=== PATIENT | female | born 1965 | race Caucasian/White ===

== ENCOUNTER → 2019-03-12 | Outpatient (CLI) | payer BC ==
[~2019-03-12] VITALS: Ht 182.9 cm; Wt 80.7 kg
[~2019-03-12] MED LIST: CATHETER FLUSH 10 ML SYR IV PRN; CYAN100053 IJ; LEVO175T2 PO
[2019-03-12 08:00] VITALS: BP 123/95
--- NOTE | 2019-03-17 14:09 | Cardiology Stress Test Report ---
Stress Test Report Type of NM Stress Test: Test Type: NUCLEAR TREADMILL Date of Procedure/Referring: Date of Procedure: Mar 12, 2019 PCP Kamila Ho,Mariaa Admitting Physician Suman Ho DO Indications: Chest pain Baseline Blood Pressure: Blood Pressure Systolic: 123 Blood Pressure Diastolic: 95 Summary & Conclusion: Summary: The patient was brought to the stress lab after informed consent was taken. Stress test was performed according to the [facility] protocol. Please refer to Dr. Ho's ETT report. 10.50 mCi of Myoview were given for rest imaging and 32.9 mCi of Myoview given for stress imaging. Transient ischemic dilatation score 0.98, EF 43 percent. Normal wall motion. Fixed anterior defect with logan-infarct ischemia. Moderate to large size. Conclusion: Pharmacological stress test was negative for ischemia. Mildly reduce LV function with normal wall motion. 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 Coronary angiography is recommended. Darcy ADAMES MD Mar 17, 2019 14:09
== END ==
LOC: CARD 06:35
PROVIDERS: ATTEND Nurse Practitioner Family
DX: R07.9 Chest pain, unspecified (principal)
CPT/HCPCS: 78452; 93017

== ENCOUNTER → 2019-04-12 | Outpatient (CLI) | payer BC ==
[~2019-04-12] MED LIST changes: -CATHETER FLUSH 10 ML SYR IV PRN
== END ==
LOC: CARD 08:09
PROVIDERS: ATTEND Internal Medicine Cardiovascular Disease
DX: I08.2 Rheumatic disorders of both aortic and tricuspid valves (principal); I25.10 Atherosclerotic heart disease of native coronary artery without angina pectoris; E03.9 Hypothyroidism, unspecified
CPT/HCPCS: 93306

== ENCOUNTER → 2019-08-07 | Outpatient (CLI) | payer BC ==
--- NOTE | 2019-08-07 13:43 | Diagnostic Imaging Report ---
INDICATION: Postmenopausal screening for osteoporosis. COMPARISON: None. FINDINGS: AP Spine L1-L4: [BMD (g/cm2): 1.052] [T-Score: -1.2] [Z-Score: -1.2] [BMD Previous: NA] [BMD % Change: NA] LT Hip Neck: [BMD (g/cm2): 1.126] [T-Score: 0.6] [Z-Score: 1.2] LT Hip Total: [BMD (g/cm2):1.109] [T-Score:0.8] [Z-Score: 1.0] [BMD Previous: NA] [BMD % Change: NA] RT Hip Neck: [BMD (g/cm2):1.139] [T-Score:0.7] [Z-Score:1.3] RT Hip Total: [BMD (g/cm2):1.050] [T-score:0.3] [Z-Score:0.5] [BMD Previous:NA] [BMD % Change:NA] *Indicates significant change from prior examination based on 95% confidence level. World Health Organization criteria for BMD interpretation classify patients as Normal (T-score at or above -1.0), Osteopenic (T-score between -1.0 and -2.5) or Osteoporotic (T-score at or below -2.5). LIMITATIONS AND MODIFICATION: None. FRACTURE RISK (FRAX SCORE): The ten year probability of (%): Major Osteoporotic Fracture: [NA] Hip Fracture: [NA] IMPRESSION: 1. Osteopenia (Low bone mass). 2. Baseline examination. 3. See below National Osteoporosis Foundation guidelines on when to potentially initiate pharmacologic therapy. Based on the National Osteoporosis Foundation Guidelines, pharmacologic treatment should be initiated in any of the following, unless clinical conditions suggest otherwise: * Any patient with prior fragility fracture of the hip or vertebrae. A spine fracture indicates 5X risk for subsequent spine fracture and 2X risk for subsequent hip fracture. * Osteoporosis (T-score <-2.5). * Postmenopausal women and men age 50 and older with low bone mass/osteopenia (T-score between -1.0 and -2.5) by DXA and 10-year major osteoporotic fracture greater than 20% or a 10-year probability of hip fracture greater than 3%. These fracture risks are supplied above in the FRAX score, if applicable. * Clinician judgement and/or patient preferences may indicate treatment for people with 10-year fracture probabilities above or below these levels. Dictated by: Dictated on workstation # [id number]
== END ==
LOC: RAD 12:55
PROVIDERS: ATTEND Internal Medicine Endocrinology, Diabetes & Metabolism
DX: Z13.820 Encounter for screening for osteoporosis (principal); M85.80 Other specified disorders of bone density and structure, unspecified site; Z78.0 Asymptomatic menopausal state
CPT/HCPCS: 77080

== ENCOUNTER → 2019-08-27 | Outpatient (CLI) | payer BC ==
--- NOTE | 2019-08-30 13:08 | Diagnostic Imaging Report ---
INDICATION: Routine screening. COMPARISON: Comparison is made with prior mammograms from 11/01/2017 and 10/18/2016. 2-D and 3-D bilateral screening mammography was performed. The current study was also evaluated with a Computer Aided Detection (CAD) system. 3-D tomosynthesis was also performed and reviewed. FINDINGS: Scattered fibroglandular densities are identified bilaterally. The parenchymal pattern is stable. No dominant mass or malignant-appearing microcalcifications are seen. Occasional benign-appearing calcifications are noted. Axillae are unremarkable. IMPRESSION: No mammographic features suspicious for malignancy are identified. ACR BI-RADS Category 2: Benign findings. Result letter will be mailed to the patient. Note: At least 10% of breast cancer is not imaged by mammography. Dictated by: Dictated on workstation # [id number]
== END ==
LOC: RAD 14:20
PROVIDERS: ATTEND Nurse Practitioner Family
DX: Z12.31 Encounter for screening mammogram for malignant neoplasm of breast (principal)
CPT/HCPCS: 77067

== ENCOUNTER → 2020-01-31 | Outpatient (CLI) | payer BC ==
--- NOTE | 2020-01-31 15:13 | Diagnostic Imaging Report ---
PROCEDURE: US Thyroid. TECHNIQUE: Multiple real-time grayscale images were obtained of the thyroid in various projections. INDICATION: Thyroid nodule. FINDINGS: The right thyroid lobe measured 3.3 x 0.8 x 1.2 cm, the left 3.7 x 1.1 x 0.9 cm. The isthmus measured 2 mm in thickness. No solid or cystic thyroidal mass. Echotexture appeared somewhat heterogeneous but no abnormal color Doppler blood flow. IMPRESSION: Mildly somewhat heterogeneous thyroid is nonfocal, no evidence of mass. Dictated by: Dictated on workstation # [id number]
== END ==
LOC: RAD 10:45
PROVIDERS: ATTEND Internal Medicine Endocrinology, Diabetes & Metabolism
DX: E04.1 Nontoxic single thyroid nodule (principal)
CPT/HCPCS: 76536

== ENCOUNTER → 2020-05-29 | Outpatient (CLI) | payer BC ==
[~2020-05-29] MED LIST changes: +GADOBUTROL 10 MMOL/10 ML (GADAVIST) VIAL IV ONE
[2020-05-29 08:13] LABS: ALANINE AMINOTRANSFERASE 30 U/L (0-55); ALBUMIN 4.5 GM/DL (3.2-4.5); ALKALINE PHOSPHATASE 67 U/L (40-136); BILIRUBIN,TOTAL 1.1 MG/DL (0.1-1.0); BUN/CREATININE RATIO 21; CALCIUM 9.4 MG/DL (8.5-10.1); CARBON DIOXIDE 22 MMOL/L (21-32); CHLORIDE 104 MMOL/L (98-107); GFR ESTIMATED > 60; GLUCOSE 249 MG/DL (70-105); POTASSIUM 4.3 MMOL/L (3.6-5.0); SODIUM 138 MMOL/L (135-145); TOTAL PROTEIN 7.2 GM/DL (6.4-8.2)
--- NOTE | 2020-05-29 11:38 | Diagnostic Imaging Report ---
Clinical indications: Patient states she is having vision loss and memory problems. Exam: MRI of the brain performed without and with 6 cc of Gadavist IV contrast. Sequences include axial DWI, ADC map, coronal gradient echo, axial T2, axial FLAIR, axial T1, axial T1 post IV contrast, coronal T1 fat-sat post IV contrast, and sagittal T1 post IV contrast. Comparison: None. Findings: There is no evidence of acute cerebral infarct, intracranial hemorrhage, or gross mass effect. There is no abnormal IV contrast enhancement. The brain parenchymal volume appears appropriate for patient's age. There are several focal areas of high T2 signal white matter changes involving both cerebral hemispheres, likely representing mild chronic small vessel ischemic disease. There is normal rubio-white matter distinction. There is no significant midline shift or herniation. The [place] vascular structures show no gross abnormality as visualized. The pituitary gland, sella, and suprasellar regions are unremarkable as visualized. There is no evidence of hydrocephalus. The basal cisterns are unremarkable. The skull, extracranial soft tissue, and orbits are unremarkable. There is very minimal mucosal thickening involving left maxillary sinus and ethmoid sinus. Temporal bones show no significant abnormality. IMPRESSION: 1: There is no acute intracranial process. There is no abnormal IV contrast enhancement. Orbits and globes show no significant abnormality. 2: Mild age-related brain parenchymal changes with mild chronic small vessel ischemic disease. 3: Minimal paranasal sinus disease. Dictated by: Dictated on workstation # [id number]
== END ==
LOC: RAD 08:45
PROVIDERS: ATTEND Internal Medicine Endocrinology, Diabetes & Metabolism
DX: I67.82 Cerebral ischemia (principal); E11.9 Type 2 diabetes mellitus without complications; R41.3 Other amnesia; H53.9 Unspecified visual disturbance
CPT/HCPCS: 36415; 70553; 80053

== ENCOUNTER → 2020-10-07 | Outpatient (CLI) | payer BC ==
[~2020-10-07] MED LIST changes: -GADOBUTROL 10 MMOL/10 ML (GADAVIST) VIAL IV ONE
--- NOTE | 2020-10-07 11:43 | Diagnostic Imaging Report ---
INDICATION: Routine screening. COMPARISON: 08/27/2019 and 11/01/2017. TECHNIQUE: 2D and 3D bilateral screening mammography was performed with CAD. FINDINGS: Both breasts are heterogeneously dense, limiting the sensitivity of mammography. The parenchymal pattern is stable. No mass or malignant appearing microcalcifications are seen. The axillae are unremarkable. IMPRESSION: No mammographic features suspicious for malignancy are identified. ACR BI-RADS Category 1: Negative. Result letter will be mailed to the patient. Note: At least 10% of breast cancer is not imaged by mammography. Dictated by: Dictated on workstation # [id number]
== END ==
LOC: RAD 10:01
PROVIDERS: ATTEND Surgery
DX: Z12.31 Encounter for screening mammogram for malignant neoplasm of breast (principal)
CPT/HCPCS: 77063; 77067

== ENCOUNTER → 2020-10-07 | Outpatient (CLI) | payer BC ==
--- NOTE | 2020-10-07 11:59 | Diagnostic Imaging Report ---
CLINICAL INDICATION: Patient with cerebrovascular disease. Patient has diabetes mellitus and history of headaches. COMPARISON: None. EXAM: Real-time carotid Doppler duplex imaging is performed bilaterally. Peak systolic velocity, ICA/CCA peak systolic ratio, spectral analysis, and vascular morphology are studied. FINDINGS: ARTERY VELOCITY Right Left CCA 0.72 m/s 0.75 m/s ICA 0.81 m/s 0.81 m/s ECA 0.52 m/s 0.70 m/s ICA/CCA 1.13 1.07 VERT.ART Antegrade Antegrade IMPRESSION: There is no grayscale or Doppler evidence of significant vascular stenosis. Dictated by: Dictated on workstation # [id number]
== END ==
LOC: RAD 10:03
PROVIDERS: ATTEND Internal Medicine Endocrinology, Diabetes & Metabolism
DX: I67.9 Cerebrovascular disease, unspecified (principal); E11.9 Type 2 diabetes mellitus without complications
CPT/HCPCS: 93880

== ENCOUNTER 2021-08-06 08:31 | Outpatient (CLI) | payer BC ==
[~2021-08-06] VITALS: Ht 182.9 cm; Wt 78.0 kg
[2021-08-06] MEDS ORDERED: ASPI-999 PO (15:15)
[2021-08-06] MEDS ORDERED: INSU100I40 SQ (15:15)
[2021-08-06] MEDS ORDERED: SEMA1PEN3 SQ (15:15)
[2021-08-06] MEDS ORDERED: METF500S5 PO (15:15)
[2021-08-06] MEDS ORDERED: INSU100V37 SQ (15:15)
[2021-08-06] MEDS ORDERED: ROSU10TA22 PO (15:15)
[2021-08-06] MEDS ORDERED: LEVO100T PO (15:32)
[2021-08-06] MEDS ORDERED: CNC1KV IM (15:32)
== END 2021-08-07 09:11 | disposition home or self-care (01) ==
LOC: PREOP 08:31
PROVIDERS: ATTEND Surgery
DX: Z01.818 Encounter for other preprocedural examination (principal)

== ENCOUNTER 2021-08-12 10:14 | Day surgery (SDC) | payer BC ==
[2021-08-12] VITALS (13 sets, daily range): BP systolic 105–132; BP diastolic 68–84
[~2021-08-12] VITALS: Ht 182.9 cm; Wt 78.0 kg
[~2021-08-12 10:14] MED LIST changes: +ASPI-999 PO; +CNC1KV IM; +INSU100I40 SQ; +INSU100V37 SQ; +LEVO100T PO; +METF500S5 PO; +ROSU10TA22 PO; +SEMA1PEN3 SQ
[2021-08-12] MEDS ORDERED: NS IV 500 ML 500 ML ONE (10:23)
[2021-08-12] MEDS ORDERED: LIDOCAINE JELLY 2% 6 ML SYRINGE MM PRN ×2 (10:30→10:45)
[2021-08-12] MEDS ORDERED: NS IV 1000 ML 1,000 ML IV STA (10:30)
[2021-08-12] MEDS ORDERED: fentaNYL INJ 100 MCG/2 ML AMP IVP ONE (10:45)
[2021-08-12] MEDS ORDERED: MIDAZOLAM 5 MG/5 ML (VERSED) VIAL IV ONE (10:45)
--- NOTE | 2021-08-12 11:08 | Conscious Sedation/ASA ---
Conscious Sedation Pre-Proced Time 10:30 ASA Score 2 For ASA 3 and 4: Consider anesthesia and medical clearance. Also, for patients with a history of failed moderate sedation consider anesthesia. Airway Lungs Heart ASA score ASA 1: a normal healthy patient ASA 2: a patient with a mild systemic disease (mid diabetes, controlled hypertension, obesity ASA 3: a patient with a severe systemic disease that limits activity (angina, COPD, prior Myocardial infarction) ASA 4: a patient with an incapacitating disease that is a constant threat to life (CHF, renal failure) ASA 5: a moribund patient not expected to survive 24 hrs. (ruptured aneurysm) ASA 6: a declared brain- patient whose organs are being harvested. For emergent operations, add the letter E after the classification Mallampati Classification Grade 2 Sedation Plan Analgesia, Amnesia, Plan communicated to team members, Discussed options with patient/fam, Discussed risks with patient/fam The patient is an appropriate candidate to undergo the planned procedure, sedation, and anesthesia. The patient immediately re-assessed prior to indication. BERTIN XIONG MD Aug 12, 2021 11:08
--- NOTE | 2021-08-12 11:08 | Progress Note-Pre Operative ---
Pre-Operative Progress Note H&P Reviewed The H&P was reviewed, patient examined and no changes noted. Date Seen by Provider: Aug 12, 2021 Time Seen by Provider: 10:30 Date H&P Reviewed: Aug 12, 2021 Time H&P Reviewed: 10:30 Pre-Operative Diagnosis: screening BERTIN Young MD Aug 12, 2021 11:08
--- NOTE | 2021-08-12 11:09 | Discharge Inst-Surgical ---
D/C Lap Instructions-INGA Follow Up Activity as tolerated High Fiber Diet 25g or more per day Avoid Alcohol, Caffeine, Spicy [place] and Acid foods. Drink 64 fluid oz or more of fluids per day. Symptoms to Report: Fever over 101 degree F, Nausea/Vomiting If any problems/questions: Contact your physician or go to Emergency Room BERTIN XIONG MD Aug 12, 2021 11:09
[2021-08-12] MEDS ORDERED: ONDANSETRON 4 MG/2 ML (SDV) Z0FRAN IVP PRN (11:15)
[2021-08-12] MEDS ORDERED: ONDANSETRON 4 MG (ZOFRAN) ORAL DISSOLVE TAB PO PRN (11:15)
--- NOTE | 2021-08-12 12:57 | Progress Note-Post Operative ---
Post-Operative Progess Note Surgeon (s)/Occupational Health And Safety Manager (s) Surgeon BERTIN XIONG MD Occupational Health And Safety Manager: none Pre-Operative Diagnosis screening colo Post-Operative Diagnosis chronic stage 2 ext and int hemorrhoids. Procedure & Operative Findings Date of Procedure 08/12/21 Procedure Performed/Findings colonoscopy Anesthesia Type cs Estimated Blood Loss Estimated blood loss (mL): minimal Specimens/Packing Specimens Removed none BERTIN XIONG MD Aug 12, 2021 12:57
--- NOTE | 2021-08-12 17:55 | OPERATIVE REPORT ---
DATE OF SERVICE: 08/12/2021 ATTENDING PRIMARY CARE PHYSICIAN: Suman Ho DO PREOPERATIVE DIAGNOSIS: Screening colonoscopy. POSTOPERATIVE DIAGNOSIS: Mild chronic stage II external and internal hemorrhoids. PROCEDURE: Colonoscopy. SURGEON: Bertin Xiong MD. ANESTHESIA: Conscious sedation. ESTIMATED BLOOD LOSS: Minimal. FINDINGS: Same as postoperative diagnosis. DISPOSITION: The patient tolerated the procedure well. INDICATIONS: The patient is a 55-year-old female in need of a screening colonoscopy. She states that she is otherwise doing well, does not report any major issues with diarrhea nor constipation as well as no red blood per rectum nor any dark tarry stools. She also does not report any family history of colon cancer. DESCRIPTION OF PROCEDURE: The patient was brought to the endoscopy suite, laid in the left lateral decubitus position. After adequate IV pain and sedative medications and conscious sedation anesthesia, a digital rectal examination was performed. Mild stage II chronic external and internal hemorrhoids were identified, which were not actively edematous nor inflamed and no bleeding. Normal sphincter tone was felt and there were no palpable masses. The endoscope was then intubated to the anus and rectum gently insufflated. The endoscope was then advanced to the valves of Sam of the rectum with no polyps or any neoplasms identified. We then proceeded through the sigmoid colon where no diverticulosis identified. The endoscope was then advanced to the remainder of the descending, transverse and ascending colon to the cecum, which appeared normal. No polyps or any neoplasms identified throughout the colon or rectum. The endoscope was then slowly withdrawn while taking a second look and suctioning of residual air with no additional findings. The patient tolerated the procedure well. We will recommend a high-fiber diet with a fiber supplement, which should equal or exceed 25 grams daily as well as significant amounts of water to promote soft stools on a daily basis. If she is asymptomatic, she does not need another colonoscopy for another 10 years. Job ID: [id number] DocumentID: [id number] Dictated Date: 08/12/2021 12:17:25 Customs Broker Date: 08/12/2021 17:55:29 Dictated By: BERTIN XIONG MD
== END 2021-08-12 14:05 | disposition home or self-care (01) ==
LOC: ENDO 10:14
PROVIDERS: ATTEND Surgery
DX: Z12.11 Encounter for screening for malignant neoplasm of colon (principal); K64.1 Second degree hemorrhoids; E11.9 Type 2 diabetes mellitus without complications; E03.9 Hypothyroidism, unspecified; Z79.890 Hormone replacement therapy; Z79.84 Long term (current) use of oral hypoglycemic drugs; Z79.899 Other long term (current) drug therapy

== ENCOUNTER → 2021-10-21 | Outpatient (CLI) | payer BC ==
--- NOTE | 2021-10-21 12:41 | Diagnostic Imaging Report ---
INDICATION: Routine screening. COMPARISON: 10/07/2020 and 08/27/2019. TECHNIQUE: 2D and 3D bilateral screening mammography was performed with CAD. FINDINGS: Both breasts are heterogeneously dense, limiting the sensitivity of mammography. The parenchymal pattern is stable. No mass or malignant-appearing microcalcifications are seen. The axillae are unremarkable. IMPRESSION: No mammographic features suspicious for malignancy are identified. ACR BI-RADS Category 1: Negative. Result letter will be mailed to the patient. Note: At least 10% of breast cancer is not imaged by mammography. Dictated by: Dictated on workstation # [id number]
== END ==
LOC: RAD 10:00
PROVIDERS: ATTEND Surgery
DX: Z12.31 Encounter for screening mammogram for malignant neoplasm of breast (principal)
CPT/HCPCS: 77063; 77067

== ENCOUNTER → 2021-11-05 | Outpatient (CLI) | payer BC ==
[~2021-11-05] MED LIST changes: +CATHETER FLUSH 10 ML SYR IV PRN; +HOLD METFORMIN - RECEIVED CONTRAST 20 ML VIAL IV SCH; +IOHEXOL 350 MG/ML 100 ML (OMNIPAQUE 350) VIAL IV ONE; +NS 100 ML (IVPB) BAG IV ONE
[2021-11-05 08:26] LABS: CREATININE SERUM 0.73 MG/DL (0.60-1.30)
--- NOTE | 2021-11-05 10:09 | Diagnostic Imaging Report ---
PROCEDURE; CT pelvis with and without contrast. TECHNIQUE: After oral contrast administration, imaging was obtained from the iliac crest to the lesser trochanters. Repeat imaging was performed after intravenous contrast administration. Auto Exposure Controls were utilized during the CT exam to meet ALARA standards for radiation dose reduction. INDICATION: Lymphadenopathy. Asymptomatic. COMPARISON: None. FINDINGS: Bilateral prominent inguinal lymph nodes are seen measuring 1.0 cm in short axis on the right and 0.8 cm in short axis on the left. These demonstrate normal reniform shape with preserved fatty hilum and are favored to be reactive. No pathologic lymphadenopathy is identified. No lymphadenopathy is seen within the pelvis itself. The included bowel loops are nondistended. No free fluid or free air is seen in the pelvis. The urinary bladder is unremarkable. The visualized aorta and bilateral iliac systems have a normal appearance. No acute osseous abnormality is seen in the pelvis. IMPRESSION: 1. Likely reactive prominent lymph nodes in the bilateral inguinal regions. No suspicious features are seen to suggest malignant lymphadenopathy. Recommend continued attention as indicated. 2. No lymphadenopathy was seen within the pelvis. No bowel obstruction. No free fluid or free air. Dictated by: Dictated on workstation # [id number]
== END ==
LOC: RAD 08:45
PROVIDERS: ATTEND Surgery
DX: R59.0 Localized enlarged lymph nodes (principal)
CPT/HCPCS: 36415; 72194; 82565; 84520

== ENCOUNTER → 2022-11-11 | Outpatient (CLI) | payer BC ==
[~2022-11-11] MED LIST changes: -CATHETER FLUSH 10 ML SYR IV PRN; -HOLD METFORMIN - RECEIVED CONTRAST 20 ML VIAL IV SCH; -IOHEXOL 350 MG/ML 100 ML (OMNIPAQUE 350) VIAL IV ONE; -METF500S5 PO; +METF500S7 PO; +NF-CRES10T PO; -NS 100 ML (IVPB) BAG IV ONE; -ROSU10TA22 PO
--- NOTE | 2022-11-11 12:34 | Diagnostic Imaging Report ---
INDICATION: Routine screening. COMPARISON: 10/21/2021 and 10/07/2020. TECHNIQUE: 2D and 3D bilateral screening mammography was performed with CAD. FINDINGS: Scattered fibroglandular densities are identified bilaterally. The parenchymal pattern is stable. No mass or malignant-appearing microcalcifications are seen. The axillae are unremarkable. IMPRESSION: No mammographic features suspicious for malignancy are identified. ACR BI-RADS Category 1: Negative. Result letter will be mailed to the patient. Note: At least 10% of breast cancer is not imaged by mammography. Dictated by: Dictated on workstation # [id number]
== END ==
LOC: RAD 09:29
PROVIDERS: ATTEND Surgery
DX: Z12.31 Encounter for screening mammogram for malignant neoplasm of breast (principal)
CPT/HCPCS: 77063; 77067

== ENCOUNTER 2023-02-14 20:47 | Emergency (ER) | payer BC ==
[~2023-02-14] VITALS: Ht 183 cm; Wt 77.1 kg
--- NOTE | 2023-02-14 21:09 | ED GU-Female ---
General Chief Complaint: - Reproductive Stated Complaint: RIGHT FLANK PAIN Nursing Triage Note: PT AMB TO RM 7 W REPORTS OF BURNING W URINATION, URINARY FREQUENCY, URGENCY, AND FLANK PAIN SX YESTERDAY. PT A&OX4, REPORTS SHE STARTED TAKING AZO AND CIPRO TODAY, VOMIT X1 THIS PM. Source: patient Exam Limitations: no limitations History of Present Illness Date Seen by Provider: Feb 14, 2023 Time Seen by Provider: 20:58 Initial Comments 57 YO F here for R flakn pain. Started to have some dysuria and increased urinary hesitancy yesterday. Today she has had flank pain on the right side for most of the day that has been worsening. No fevers but she has had some chills. She had a single episode of nonbloody nonbilious emesis. No changes in her bowels. No vaginal symptoms. She is postmenopausal. She did take a single dose of Cipro which she had at home for previous UTIs. All other systems reviewed and negative except documented per HPI. Voice recognition software was used to help create this chart Allergies and Home Medications Allergies Coded Allergies: meperidine (Verified Allergy, Unknown, 05/29/20) Patient Home Medication List Home Medication List Reviewed: Yes Aspirin (Aspirin) 81 Mg Tab.chew, 81 MG PO DAILY, (Reported) Entered as Reported by: DANIEL VILLA on 08/06/21 151 Cyanocobalamin (Cyanocobalamin Injection) 1,000 Mcg/Ml Inj, 1,000 MCG IM, (Reported) Entered as Reported by: DANIEL VILLA on 08/06/21 1532 Hydrocodone/Acetaminophen (Hydrocodone-Acetamin 5-325 mg) 5 Mg-325 Mg Tablet, 1 TAB PO Q4H PRN for PAIN-MODERATE (5-7) Prescribed by: NOEL CASTILLO MD on 02/15/23 0152 Insulin Aspart (Niacinamide) (Fiasp 100 Unit/ml Flextouch) 100 Unit/1 Ml Insuln.pen, 1 UNIT SQ AC, (Reported) Entered as Reported by: DANIEL VILLA on 08/06/21 1515 Insulin Degludec (Tresiba) 100 Unit/1 Ml Vial, 7 UNIT SQ DAILY, (Reported) Entered as Reported by: DANIEL VILLA on 08/06/21 1515 Levothyroxine Sodium (Synthroid) 175 Mcg Tablet, 100 MG PO DAILY, (Reported) Entered as Reported by: NASH ARAUZ on 10/18/13 0040 Levothyroxine Sodium (Synthroid) 100 Mcg Tablet, 100 MCG PO DAILY, (Reported) Entered as Reported by: DANIEL VILLA on 08/06/21 153 Metformin HCl (Metformin HCl) 500 Mg/5 Ml Solution, 750 MG PO BID, (Reported) Entered as Reported by: DANIEL VILLA on 08/06/21 1515 Ondansetron (Ondansetron Odt) 8 Mg Tab.rapdis, 8 MG SL Q6H PRN for NAUSEA/VOMITING Prescribed by: NOEL CASTILLO MD on 02/15/23 0152 Rosuvastatin Calcium (Crestor) 10 Mg Tablet, 10 MG PO DAILY, (Reported) Entered as Reported by: DANIEL VILLA on 08/06/21 151 Semaglutide (Ozempic) 1 Mg/0.75 Ml Pen.injctr, 1 MG SQ WEEKLY, (Reported) Entered as Reported by: DANIEL VILLA on 08/06/21 151 Review of Systems Review of Systems Constitutional: see HPI Past Dzkianr-Mxhdwr-Ddybie Hx Patient Social History Tobacco Use?: No Use of E-Cig and/or Vaping dev: No Substance use?: No Alcohol Use?: No Immunizations Up To Date First/Initial COVID19 Vaccinat: 04/18 Second COVID19 Vaccination Riky: 04/18 Third COVID19 Vaccination Date: 04/18 COVID19 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 Seasonal Allergies Seasonal Allergies: No Past Medical History Respiratory: No Cardiac: No Neurological: Yes Headaches /Migraines Reproductive Disorders: No Sexually Transmitted Disease: No HIV/AIDS: No Genitourinary: No Gastrointestinal: No (CEALIAC) Musculoskeletal: No Endocrine: No Diabetes, Insulin dep, Hypothyroidsim HEENT: Yes (RIGHT EAR TINNITIS) Tinnitis Loss of Vision: Denies Hearing Impairment: Denies Cancer: No Psychosocial: No Integumentary: No Blood Disorders: No Adverse Reaction/Blood Tranf: No Family Medical History Abdominal aortic aneurysm 09 BROTHER Alcoholism 09 BROTHER Cancer 09 SISTER (THYROID CANCER) 09 SISTER (THYROID CANCER) Family history: Alzheimer's disease 03 FATHER Family history: Arthritis 03 MOTHER Family history: Diabetes mellitus 09 SISTER Family history: Hypertension 03 FATHER 03 MOTHER Family history: Thyroid disorder 09 SISTER 09 SISTER 09 SISTER Headache 09 BROTHER (MIGRAINES) Infertile 09 SISTER Stroke 03 MOTHER No Family History of: Compton's disease Aphasia Cancer of colon Cataract Chest pain Congenital heart disease Congestive heart failure Cystic fibrosis Dementia Dysphagia Family history: Allergy Family history: Asthma Family history: Breast disease Family history: Cardiovascular disease Family history: Coronary thrombosis Family history: Gastrointestinal disease Family history: Glaucoma Family history: Osteoporosis Hearing loss Heart disease Hereditary disease History of - anemia History of - disorder History of - respiratory disease History of drug abuse Human immunodeficiency virus (HIV) seropositivity Hypercholesterolemia Kidney disease Malignant neoplasm of lung Myocardial infarction Parkinson's disease Prostate cancer Psychotic disorder Seizure disorder Tuberculosis Visual impairment Physical Exam Vital Signs Vital Signs - First Documented 02/14/23 21:00 Temp 37.1 Pulse 92 Resp 18 B/P (MAP) 134/97 (109) Pulse Ox 98 O2 Delivery Room Air Capillary Refill : Less Than 3 Seconds Height, Weight, BMI Height: 6'0.00" Weight: 178lbs. 0.0oz. [id number]; 23.00 BMI Method: General Appearance: WD/WN, no apparent distress HEENT: normal ENT inspection, pharynx normal Neck: full range of motion, supple, normal inspection Cardiovascular: regular rate, rhythm, no murmur Respiratory: chest non-tender, lungs clear, normal breath sounds, no respiratory distress, no accessory muscle use Gastrointestinal: normal bowel sounds, soft, no organomegaly, no pulsatile mass, tenderness (Tenderness palpation in suprapubic region. Right flank tenderness.) Back: no vertebral tenderness, CVA tenderness (R) Extremities: normal range of motion, non-tender, normal inspection, normal capillary refill Neurologic/Psychiatric: alert, oriented x 3 Skin: normal color, warm/dry Progress/Results/Core Measures Suspected Sepsis SIRS Temperature: Pulse: 92 Respiratory Rate: 18 Laboratory Tests 02/14/23 21:04: White Blood Count 10.3 Blood Pressure 134 /97 Mean: 109 Laboratory Tests 02/14/23 21:04: Creatinine 0.81, Platelet Count 198, Total Bilirubin 2.2H Results/Orders Lab Results Laboratory Tests Test 02/14/23 21:04 02/14/23 21:06 Range/Units White Blood Count 10.3 4.3-11.0 10^3/uL Red Blood Count 4.30 3.80-5.11 10^6/uL Hemoglobin 13.5 11.5-16.0 g/dL Hematocrit 40 35-52 % Mean Corpuscular Volume 93 80-99 fL Mean Corpuscular Hemoglobin 31 25-34 pg Mean Corpuscular Hemoglobin Concent 34 32-36 g/dL Red Cell Distribution Width 12.5 10.0-14.5 % Platelet Count 198 130-400 10^3/uL Mean Platelet Volume 10.0 9.0-12.2 fL Immature Granulocyte % (Auto) 0 % Neutrophils (%) (Auto) 62 42-75 % Lymphocytes (%) (Auto) 24 12-44 % Monocytes (%) (Auto) 10 0-12 % Eosinophils (%) (Auto) 2 0-10 % Basophils (%) (Auto) 1 0-10 % Neutrophils # (Auto) 6.4 1.8-7.8 10^3/uL Lymphocytes # (Auto) 2.5 1.0-4.0 10^3/uL Monocytes # (Auto) 1.1 H 0.0-1.0 10^3/uL Eosinophils # (Auto) 0.3 0.0-0.3 10^3/uL Basophils # (Auto) 0.1 0.0-0.1 10^3/uL Immature Granulocyte # (Auto) 0.0 0.0-0.1 10^3/uL Sodium Level 139 135-145 MMOL/L Potassium Level 3.9 3.6-5.0 MMOL/L Chloride Level 106 98-107 MMOL/L Carbon Dioxide Level 22 21-32 MMOL/L Anion Gap 11 5-14 MMOL/L Blood Urea Nitrogen 15 7-18 MG/DL Creatinine 0.81 0.60-1.30 MG/DL Estimat Glomerular Filtration Rate 86 BUN/Creatinine Ratio 19 Glucose Level 128 H 70-105 MG/DL Calcium Level 10.0 8.5-10.1 MG/DL Corrected Calcium 9.6 8.5-10.1 MG/DL Total Bilirubin 2.2 H 0.1-1.0 MG/DL Aspartate Amino Transf (AST/SGOT) 14 5-34 U/L Alanine Aminotransferase (ALT/SGPT) 17 0-55 U/L Alkaline Phosphatase 62 40-136 U/L Total Protein 7.2 6.4-8.2 GM/DL Albumin 4.5 3.2-4.5 GM/DL Lipase 27 8-78 U/L Urine Color YELLOW Urine Clarity CLEAR Urine pH 6.5 5-9 Urine Specific [place] 1.010 L 1.016-1.022 Urine Protein 2+ H NEGATIVE Urine Glucose (UA) NEGATIVE NEGATIVE Urine Ketones 1+ H NEGATIVE Urine Nitrite POSITIVE H NEGATIVE Urine Bilirubin NEGATIVE NEGATIVE Urine Urobilinogen 1.0 < = 1.0 MG/DL Urine Leukocyte Esterase 2+ H NEGATIVE Urine RBC (Auto) 3+ H NEGATIVE Urine RBC 5-10 H /HPF Urine WBC 10-25 H /HPF Urine Crystals PRESENT H /LPF Urine Amorphous Sediment FEW STELLA URATES H /LPF Urine Bacteria FEW H /HPF Urine Casts NONE /LPF Urine Mucus NEGATIVE /LPF Urine Culture Indicated YES Micro Results Microbiology 02/14/23 Urine Culture - Final, Complete NO GROWTH My Orders Orders - ANNANOEL DO Lipase (02/14/23 21:07) Cbc With Automated Diff (02/14/23 21:07) Comprehensive Metabolic Panel (02/14/23 21:07) Ct Abd/Pelvis Wo(Kidney Stone) (02/14/23 21:07) Ua Culture If Indicated (02/14/23 21:07) Fentanyl Inj (Sublimaze Injection) (02/14/23 21:15) Urine Culture (02/14/23 21:06) Ns Iv 1000 Ml (Sodium Chloride 0.9%) (02/14/23 22:00) Ceftriaxone Iv/Im (Rocephin Iv/Im) (02/14/23 22:00) Morphine Injection (Morphine Injection (02/14/23 22:17) Ondansetron Injection (Zofran Injectio (02/14/23 22:33) Diatrizoate Meglum/Sodium 37% (Gastrogra (02/14/23 23:15) Ct Abdomen/Pelvis W (02/15/23 00:30) Iohexol Injection (Omnipaque 350 Mg/Ml 1 (02/15/23 01:00) Received Contrast (Hold Metformin- Contr (02/15/23 01:00) Sodium Chloride Flush (Catheter Flush Sy (02/15/23 01:00) Ns (Ivpb) (Sodium Chloride 0.9% Ivpb Bag (02/15/23 01:00) Morphine Injection (Morphine Injection (02/15/23 01:36) Rx-Ondansetron Po (Rx-Zofran Po) (02/15/23 02:00) Rx-Hydrocodone/Apap 5-325 Mg (Rx-Vicodin (02/15/23 02:00) Medications Given in ED Vital Signs/I&O 02/15/23 00:00 Intake Total 1050 ml Balance 1050 ml Capillary Refill : Less Than 3 Seconds Blood Pressure Mean: 109 Departure Communication (Admissions) Patient is hemodynamically stable though she has significant pain in her right flank and right suprapubic, mid abdomen. Initial concern is for pyelonephritis, cystitis, nephrolithiasis, possible small or large bowel pathology or ovarian pathology. Initial CT scan without contrast screening for ureterolithiasis shows no kidney stone however there is some inflammation around the right kidney and there is an area that is suspicious for possible tumor. Radiologist also reads possible internal hernia in the left upper abdomen with possible partial bowel obstruction in the area as well. Low back to reevaluate the patient and she again has no pain or symptoms whatsoever in her left upper abdomen. She is still in significant pain in her right lower to mid abdomen and right flank. I went ahead and obtained a CT scan with IV and oral contrast given the previous findings. This comes back completely negative for any acute pathology. I believe she likely has pyelonephritis. I did refer her to general surgery for possible internal hernia and further evaluation however at this point she is completely asymptomatic and subsequent CT scan did not show evidence of this. She has ciprofloxacin at home, has only taken 1 dose thus far. She is discharged with pain medicine nausea medicine and otherwise stable condition. She was given IV fluids here prior to discharge as well. Impression Primary Impression: Pyelonephritis Disposition: HOME, SELF-CARE Condition: Stable Departure-Patient Inst. Referrals: JEVON STAPLES DO (PCP) Primary Care Physician SABRINA STAPLES DNP (Family) Primary Care Physician Patient Instructions: Kidney Infection (DC) Add. Discharge Instructions: Continue the ciprofloxacin that you have at home. Take the pain medicine as prescribed as needed. This may make you drowsy so do not drive or make important decisions while taking it. Take the nausea medicine as needed by dissolving it under your tongue. Increase your fluids and rest. Return to the emergency department for any severe concerns. Follow-up with your primary doctor for any nonemergent needs. All discharge instructions reviewed with patient and/or family. Voiced understanding. Scripts Ondansetron (Ondansetron Odt) 8 Mg Tab.rapdis 8 MG SL Q6H PRN for NAUSEA/VOMITING for 5 Days, #20 TAB Prov: NOEL CASTILLO DO 02/15/23 Hydrocodone/Acetaminophen (Hydrocodone-Acetamin 5-325 mg) 5 Mg-325 Mg Tablet 1 TAB PO Q4H PRN for PAIN-MODERATE (5-7) for 3 Days, #12 TAB Prov: NOEL CASTILLO DO 02/15/23 NOEL CASTILLO DO Feb 14, 2023 21:09
[2023-02-14 21:14] LABS: BASOPHILS # (AUTO) 0.1 10^3/uL (0.0-0.1); BASOPHILS % (AUTO) 1 % (0-10); EOSINOPHILS # (AUTO) 0.3 10^3/uL (0.0-0.3); EOSINOPHILS % (AUTO) 2 % (0-10); HEMATOCRIT 40 % (35-52); HEMOGLOBIN 13.5 g/dL (11.5-16.0); LYMPHOCYTES # (AUTO) 2.5 10^3/uL (1.0-4.0); LYMPHOCYTES % (AUTO) 24 % (12-44); MEAN CORPUSCULAR HEMOGLOBIN 31 pg (25-34); MEAN CORPUSCULAR HGB CONC 34 g/dL (32-36); MEAN CORPUSCULAR VOLUME 93 fL (80-99); MONOCYTES # (AUTO) 1.1 10^3/uL (0.0-1.0); MONOCYTES % (AUTO) 10 % (0-12); NEUTROPHILS # (AUTO) 6.4 10^3/uL (1.8-7.8); NEUTROPHILS % (AUTO) 62 % (42-75); PLATELET COUNT 198 10^3/uL (130-400); WHITE BLOOD COUNT 10.3 10^3/uL (4.3-11.0)
[2023-02-14] MEDS ORDERED: fentaNYL INJ 100 MCG/2 ML AMP IVP ONE (21:15)
[2023-02-14 21:17] LABS: CLARITY,URINE CLEAR; COLOR,URINE YELLOW; GLUCOSE, URINE (UA) NEGATIVE (NEGATIVE); KETONES,URINE 1+ (NEGATIVE); LEUKOCYTE ESTERASE ,URINE 2+ (NEGATIVE); NITRITE,URINE POSITIVE (NEGATIVE); PH,URINE 6.5 (5-9); PROTEIN,URINE 2+ (NEGATIVE)
[2023-02-14 21:27] LABS: ALBUMIN 4.5 GM/DL (3.2-4.5); BILIRUBIN,TOTAL 2.2 MG/DL (0.1-1.0); CREATININE SERUM 0.81 MG/DL (0.60-1.30); POTASSIUM 3.9 MMOL/L (3.6-5.0); TOTAL PROTEIN 7.2 GM/DL (6.4-8.2)
[2023-02-14 21:27] LABS: AMORPHOUS SEDIMENT,UR FEW AMOR URATES /LPF; BACTERIA,URINE FEW /HPF
[2023-02-14 21:31] LABS: BILIRUBIN,URINE NEGATIVE (NEGATIVE)
[2023-02-14] MEDS ORDERED: cefTRIAXone IV/IM 1,000 MG in NS (IVPB) 50 ML IV ONE (22:00)
[2023-02-14] MEDS ORDERED: NS IV 1000 ML 1,000 ML IV SCH (22:00)
[2023-02-14] MEDS ORDERED: morphine INJ 10 MG/ML 1ML (SYR OR VIAL) IVP STA (22:17)
[2023-02-14] MEDS ORDERED: ONDANSETRON 4 MG/2 ML (SDV) Z0FRAN ONE (22:33)
--- NOTE | 2023-02-14 22:55 | Diagnostic Imaging Report ---
PROCEDURE: CT urinary tract, rule out kidney stone. TECHNIQUE: Multiple contiguous axial images were obtained through the abdomen and pelvis without the use of intravenous contrast. Auto Exposure Controls were utilized during the CT exam to meet ALARA standards for radiation dose reduction. INDICATION: 57-year-old female, left-sided abdominal pain today. Vomiting. CORRELATION STUDY: None. FINDINGS: LOWER THORAX: Elevated left diaphragm. Lung bases are clear. LIVER: Unremarkable. GALLBLADDER: Present and unremarkable. No bile duct dilatation. SPLEEN: Unremarkable. PANCREAS: Unremarkable. ADRENAL GLANDS: Unremarkable. KIDNEYS: Mild prominent appearance about the right renal pelvis with slight haziness. No overt hydronephrosis. Left kidney and collecting system unremarkable. ABDOMINAL AORTA: Unremarkable, nonaneurysmal. GASTROINTESTINAL TRACT: Esophageal hernia is present. There is some folding of the proximal stomach at the level of the diaphragm. No obstruction. There is moderate stool within the colon. There is asymmetric gas distention and suggestion of slight rotation of the colon left upper quadrant extending into the area of the elevated diaphragm. A few loops of small bowel appears well. There is suggestion of slight rotation of the gastrointestinal tract and mesentery. No free air. No pneumatosis. URINARY BLADDER: Relatively decompressed. REPRODUCTIVE: Uterus is retroverted towards the right, otherwise unremarkable. OSSEOUS STRUCTURES: No acute abnormality. OTHER: None. IMPRESSION: 1. Abnormal orientation along with distention of the colon left upper quadrant. Slightly rotated appearance is suggested. This does raise concern for internal hernia or perhaps volvulus while considered less likely not excluded. Surgical consultation would be recommended depending upon clinical findings. 2. Questionable ill-defined fullness of the right hilum. Incompletely characterized on this noncontrast study. However, correlation with short-term follow-up contrast-enhanced imaging is recommended as possibility of underlying urothelial malignancy would be difficult to exclude at this time. Telephone call has been made to Dr. Tripp at the time of this dictation, 10:30 PM. Dictated by: Dictated on workstation # [id number]
[2023-02-14] MEDS ORDERED: DIATRIZOATE MEGLUM/SODIUM 37% 120 ML (GASTROGRAFIN) PO ONE (23:15)
[2023-02-15] MEDS ORDERED: NS 100 ML (IVPB) BAG IV ONE (01:00)
[2023-02-15] MEDS ORDERED: HOLD METFORMIN - RECEIVED CONTRAST 20 ML VIAL IV SCH (01:00)
[2023-02-15] MEDS ORDERED: CATHETER FLUSH 10 ML SYR IV PRN (01:00)
[2023-02-15] MEDS ORDERED: IOHEXOL 350 MG/ML 100 ML (OMNIPAQUE 350) VIAL IV ONE (01:00)
[2023-02-15] MEDS ORDERED: morphine INJ 10 MG/ML 1ML (SYR OR VIAL) IVP STA (01:36)
[2023-02-15] MEDS ORDERED: ONDA8TAB13 SL (01:52)
[2023-02-15] MEDS ORDERED: ACHD5005 PO (01:52)
[2023-02-15] MEDS ORDERED: RX-ONDANSETRON 4 MG ODT (ZOFRAN) PPK #4 PO ONE (02:00)
[2023-02-15 02:03] VITALS: BP 107/70
--- NOTE | 2023-02-15 06:30 | Diagnostic Imaging Report ---
EXAMINATION: CT abdomen and pelvis with intravenous contrast. TECHNIQUE: Multiple contiguous axial images were obtained through the abdomen and pelvis after the uneventful administration of intravenous contrast. All CT scans use one or more of the following dose optimizing techniques: automated exposure control, MA and/or KvP adjustment based on patient size and exam type or iterative reconstruction. HISTORY: R kidney with possible mass, possible internl hernia LUQ COMPARISON: 02/14/2023 FINDINGS: Lung bases: Bibasilar dependent atelectasis. Solid organs: The liver is normal without focal lesion. The gallbladder is normal. There is no biliary ductal dilation. Pancreas is normal. Spleen is normal. Adrenal glands are normal. The kidneys are normal without hydronephrosis. Bowel: The stomach and small bowel are normal without obstruction. Mild dilation of the transverse colon which is not pathologically distended. There is a focal transition point within left upper quadrant. The appendix is normal. Peritoneum: There is no intraperitoneal free fluid or free air. No suspicious lymphadenopathy. Vasculature: Normal without aneurysm. Musculoskeletal: No suspicious osseous lesion or compression fracture. Pelvis: The uterus is surgically absent. No adnexal mass. The urinary bladder is normal. IMPRESSION: 1. No acute abnormality in the abdomen or pelvis. 2. There is mild dilatation of the transverse colon within the left upper quadrant with area of transition seen along the left upper quadrant. The distal colon is decompressed. This does not appear to be causing obstruction at this time but could be secondary to internal hernia. Dictated by: Dictated on workstation # [id number]
== END 2023-02-15 02:03 | disposition home or self-care (01) ==
LOC: EDUNIT# 20:47 → ER 20:50
DX: N12 Tubulo-interstitial nephritis, not specified as acute or chronic (principal); E11.9 Type 2 diabetes mellitus without complications; Z79.4 Long term (current) use of insulin; Z88.6 Allergy status to analgesic agent; Z87.440 Personal history of urinary (tract) infections
CPT/HCPCS: 36415; 74176; 74177; 80053; 81000; 83690; 85025; 87088

== ENCOUNTER 2023-06-09 05:29 | Outpatient (CLI) | payer BC ==
[~2023-06-09] VITALS: Ht 185.9 cm; Wt 75.0 kg
[~2023-06-09 05:29] MED LIST changes: +ACHD5005 PO; +ONDA8TAB13 SL
== END 2023-06-09 13:45 | disposition home or self-care (01) ==
LOC: PREOP 05:29
PROVIDERS: ATTEND Surgery
DX: Z01.818 Encounter for other preprocedural examination (principal)

== ENCOUNTER 2023-06-16 09:35 | Day surgery (SDC) | payer BC ==
[2023-06-16] VITALS (10 sets, daily range): BP systolic 103–114; BP diastolic 74–80
[~2023-06-16] VITALS: Ht 185.9 cm; Wt 75.0 kg
[2023-06-16] MEDS ORDERED: ceFAZolin INJECTION 2,000 MG in NS (IVPB) 50 ML 50 ML IV ONE (09:45)
[2023-06-16] MEDS ORDERED: dexAMETHasone INJ 10 MG/ML 1 ML VIAL ONE (10:11)
[2023-06-16] MEDS ORDERED: ONDANSETRON INJECTION 4 MG/2 ML (SDV) ONE (10:11)
[2023-06-16] MEDS ORDERED: LIDOCAINE PF 2% 5 ML VIAL ONE (10:11)
[2023-06-16] MEDS ORDERED: proPOfol INJECTION 200 MG/20 ML VIAL IV ONE (10:11)
[2023-06-16] MEDS ORDERED: fentaNYL INJECTION 100 MCG/2 ML VIAL ONE (10:11)
[2023-06-16] MEDS ORDERED: MIDAZOLAM INJ 2 MG/2 ML VIAL ONE (10:12)
[2023-06-16] MEDS: LACTATED RINGERS 1,000 ML 1,000 ML IV PRN ×2 (10:14→11:47)
[2023-06-16] MEDS ORDERED: LIDOCAINE 2% w/EPI 1:100,000 20 ML VIAL ONE (10:36)
[2023-06-16] MEDS: LIDOCAINE 2% w/EPI 1:100,000 20 ML VIAL INJ ONE (11:36)
[2023-06-16] MEDS ORDERED: SEVOFLURANE (ULTANE) 15 ML INHAL SOLN ONE (11:57)
--- NOTE | 2023-06-16 12:01 | Progress Note-Pre Operative ---
Pre-Operative Progress Note Date of Available H&P: Jun 16, 2023 Date H&P Reviewed: Jun 16, 2023 Time H&P Reviewed: 10:30 History & Physical: No changes noted Pre-Operative Diagnosis: persistent right inguinal lymphadenopathy BERTIN XIONG MD Jun 16, 2023 12:01
[2023-06-16] MEDS ORDERED: HYDR-3817 PO (12:02)
--- NOTE | 2023-06-16 12:03 | Discharge Inst-Surgical ---
D/C Lap Instructions-INGA New, Converted, or Re-Newed RX: RX on Chart Follow Up Appt in 2 weeks Activity as tolerated No driving for 24 hours No driving while on pain medications Regular Diet Symptoms to Report: Fever over 101 degree F, Nausea/Vomiting Infection Signs and Symptoms to report: Increased redness, Foul odor of wound, Increased drainage Bathing instructions: May shower Operative Area Clean/Dry; Keep incision clean/dry If any problems/questions: Contact your physician or go to Emergency Room BERTIN XIONG MD Jun 16, 2023 12:03
--- NOTE | 2023-06-16 12:05 | Progress Note-Post Operative ---
Post-Operative Progess Note Surgeon (s)/Clinical Social Work Aide (s) Surgeon BERTIN XIONG MD Clinical Social Work Aide: none Pre-Operative Diagnosis persistent right inguinal lymphadenopathy Post-Operative Diagnosis same Procedure & Operative Findings Date of Procedure 06/16/23 Procedure Performed/Findings excsision right inguinal lymph node x2 Anesthesia Type general LMA and local Estimated Blood Loss Estimated blood loss (mL): minimal Specimens/Packing Specimens Removed right inguinal lymph node x2 BERTIN XIONG MD Jun 16, 2023 12:05
--- NOTE | 2023-06-16 12:06 | Anesthesia-General Post-Op ---
General Patient Condition Mental Status/LOC: Same as Preop Cardiovascular: Satisfactory Nausea/Vomiting: Absent Respiratory: Satisfactory Pain: Controlled Complications: Absent Post Op Complications Complications None Follow Up Care/Instructions Patient Instructions None needed. Anesthesia/Patient Condition Patient Condition Patient is doing well, no complaints, stable vital signs, no apparent adverse anesthesia problems. No complications reported per nursing. APRIL GEORGE CRNA Jun 16, 2023 12:06
[2023-06-16] MEDS ORDERED: morphine INJ 10 MG/ML 1ML (SYR OR VIAL) IVP ONE (12:15)
[2023-06-16] MEDS ORDERED: ONDANSETRON 4 MG ORAL DISSOLVE TABLET PO PRN (12:15)
[2023-06-16] MEDS ORDERED: ONDANSETRON INJECTION 4 MG/2 ML (SDV) IVP PRN ×2 (12:15)
--- NOTE | 2023-06-16 18:38 | OPERATIVE REPORT ---
DATE OF SERVICE: 06/16/2023 ATTENDING PRIMARY CARE PHYSICIAN: Suman Ho DO PREOPERATIVE DIAGNOSIS: Persistent right inguinal lymphadenopathy. POSTOPERATIVE DIAGNOSES: Persistent right inguinal lymphadenopathy. PROCEDURE: Excisional biopsy, right inguinal lymph node x2. SURGEON: Bertin Xiong MD ANESTHESIA: General laryngeal mask airway with local. ESTIMATED BLOOD LOSS: Minimal. FINDINGS: Two slightly enlarged right inguinal lymph nodes. DISPOSITION: The patient tolerated the procedure well. INDICATIONS: The patient is a 57-year-old female who has noticed bilateral inguinal enlarged lymph nodes on an intermittent basis for the past year. She states that the right has been more significant than the left. She states that currently she only has a slightly enlarged, palpable lymph nodes in the right inguinal region. She does not report any recent travel or change in drinking water or food sources. She also does not report any infections involving the lower extremity or feet. She also does not report any systemic symptoms of fevers, night sweats as well as inadvertent weight loss. She also does not know of any direct family history of any cancers. DESCRIPTION OF PROCEDURE: The patient was brought to the operating room, laid supine on the table. After adequate IV pain and sedative medications and general laryngeal mask airway intubation, the groin and abdomen were prepped and draped in standard surgical fashion. A 2% lidocaine with epinephrine was then used to anesthetize the overlying skin in the left inguinal region. Oblique incision was then made using a #15 blade. The subcutaneous tissue was then dissected using electrocautery. There were 2 palpable lymph nodes identified, which were slightly larger than normal. These were isolated and completely dissected out after the fascia was opened using electrocautery. The lymph nodes were then isolated and completely excised using electrocautery with visualization of good hemostasis. The lymph nodes were then sent to pathology. Good hemostasis was observed and the fascia was then closed using interrupted 3-0 Vicryl sutures. The skin was then closed using 4-0 Monocryl running subcuticular sutures. Wounds were then cleaned and covered with Dermabond. The patient tolerated the procedure well. We will have her follow up in the office in approximately 2 weeks and discuss the pathology results. She is instructed to do all her normal activities of daily living; however, no severe lifting or exertion for the next week or two. Job ID: [id number] DocumentID: [id number] Dictated Date: 06/16/2023 12:15:15 Powerhouse Laborer Date: 06/16/2023 18:36:00 Dictated By: BERTIN XIONG MD
== END 2023-06-16 13:40 ==
LOC: SDC 09:35
PROVIDERS: ATTEND Surgery
DX: R59.0 Localized enlarged lymph nodes (principal); K56.2 Volvulus
CPT/HCPCS: 87081